=== PATIENT | male | born 1965 | race Caucasian/White ===

== ENCOUNTER 2021-10-23 09:44 | Observation (INO) | payer BC, SELFPAY ==
[2021-10-23] VITALS (14 sets, daily range): BP systolic 111–142; BP diastolic 80–99; PULSE 85–110; RESP 16–18; TEMP 36.8; O2SAT 92–98; BMI 57.3; BMI 53.8
--- NOTE | 2021-10-23 | IR_ITS ---
APPROVED REPORT Patient Location: Emergent Flight Hostess: DIXON Trent RT (R) PROCEDURES Left heart catheterization Left ventriculogram Selective coronary angiogram INDICATION Acute ST elevation myocardial infarction SCAI INDICATION Clinical history 56-year-old gentleman with morbid obesity diabetes hyperlipidemia hypertension along with family history has been experiencing intermittent resting chest pain discomfort. He was seen in the office this morning for urgent consultation and admitted to experiencing chest pain last evening. EKG demonstrated ST elevation in lead V2, I and aVL along with reciprocal changes in leads II, III, aVF. Because of patient's insulin requiring diabetes and suspicion for an ST elevation myocardial infarction he was immediately taken to the emergency department and prepped for emergent cardiac catheterization based on the above scenario and EKG suggesting ST elevation myocardial infarction Informed consent was obtained prior to the procedure. COMPLICATIONS None Estimated Blood Loss: Less than 10 mls TECHNIQUE One percent lidocaine used to anesthetize the right anterior aspect of the wrist. The right radial artery was accessed via the Seldinger technique. A 6 Syrian sheath was placed in the right radial artery. 2.5 mg of verapamil, 800 mcg of nitroglycerin, 1mg Lidocaine and 5000 U Heparin were given through the arterial sheath. The papa catheter was also used to perform left heart catheterization, left ventriculogram and selective coronary angiogram. At the end of the procedure the sheath was removed good hemostasis was achieved using Traclet band, patient was transferred to the postop holding area in stable condition. ANGIOGRAPHIC RESULTS The left main artery Normal The left anterior descending artery Normal The circumflex artery Normal The right coronary artery Dominant normal The WHITTEN ventriculogram reveals Normal 65% The left ventricular end-diastolic pressure 15 to 20 mmHg IMPRESSION Normal coronary arteries Normal ejection fraction Mildly elevated LVEDP PLAN 1. Evaluation of noncardiac symptoms such as pulmonary embolism. Patient's EKG is strikingly abnormal while patient claims previous EKGs were normal. 2. Continue risk factor modification Electronically signed by : Issa Castillo MD 10/23/2021 13:37:19
--- NOTE | 2021-10-23 09:44 | HMH.EDGENADL ---
ED Disposition Clinical Impression: ST elevation IN (STEMI) Disposition: Admitted As Inpatient Condition on Discharge: Serious - Critical Care Critical Care Time: No Attestation: On , the high probability of a clinically significant, sudden or life threatening deterioration of the following system(s) required my full and direct attention, intervention and personal management. The time I documented below is in addition to time spent performing reported procedures but includes the following listed in this critical care notation. Medical Decision Making - Pierre Inquiry Pt receiving controlled substance: No Vital Signs: 10/23/21 09:44 Temperature 98.3 F Temperature Source Oral Pulse Rate [Right Radial] 86 Respiratory Rate 16 Blood Pressure [Right Arm] 134/99 H Blood Pressure Mean [Right Arm] 110 Blood Pressure Source [Right Arm] Automatic Cuff Blood Pressure Position [Right Arm] Sitting 02 Sat by Pulse Oximetry 98 Oxygen Delivery Method Room Air - Lab Data Lab Results 10/23/21 09:49: WBC 5.1, RBC 5.48, Hgb 14.2, Hct 44.9, MCV 82.0, MCH 25.9 L, MCHC 31.5 L, RDW 15.2, Plt Count 270, MPV 8.1, Neut % (Auto) 46.6, Lymph % (Auto) 39.2, [place] % (Auto) 6.1, Eos % (Auto) 6.9, Baso % (Auto) 1.2, Neut # (Auto) 2.4, Lymph # (Auto) 2.0, [place] # (Auto) 0.3, Eos # (Auto) 0.4, Baso # (Auto) 0.1 10/23/21 09:49: Sodium 137, Potassium 3.9, Chloride 102, Carbon Dioxide 28, Anion Gap 10.9, BUN 14, Creatinine 0.80, Estimated Creat Clear 102, Estimated GFR 101, Est GFR ( Amer) 122, Glucose 97, Calcium 9.7, Troponin I < 0.01 10/23/21 09:59: SARS-CoV-2 (PCR) Not detected, Influenza A Untype (PCR) Not detected, Influenza Type B (PCR) Not detected Result diagrams: 10/23/21 09:49 10/23/21 09:49 Orders (Tests/Meds): ED MEDICATIONS Discontinued Medications Generic Name Dose Route Start Last Admin Trade Name Freq PRN Reason Stop Dose Admin Acetaminophen 650 mg 10/23/21 11:03 Acetaminophen 325mg Tab PO 11/22/21 11:02 Q4HP PRN Fever or Mild Pain Diphenhydramine HCl 50 mg 10/23/21 09:58 10/23/21 10:12 Diphenhydramine 50mg/Ml Vial IV 10/23/21 09:59 50 mg ONCE ONE Administration Fentanyl Citrate 25 mcg 10/23/21 09:58 Fentanyl 100mcg/2ml Vial IV 10/24/21 09:58 Q3MINP PRN Moderate to Severe Pain Fentanyl Citrate 50 mcg 10/23/21 09:58 10/23/21 10:21 Fentanyl 100mcg/2ml Vial IV 10/24/21 09:58 150 mcg Q3MINP PRN Administration Moderate to Severe Pain Fentanyl Citrate 25 mcg 10/23/21 09:58 Fentanyl 250mcg/5ml Vial IV 10/24/21 09:58 Q3MINP PRN Moderate to Severe Pain Fentanyl Citrate 50 mcg 10/23/21 09:58 Fentanyl 250mcg/5ml Vial IV 10/24/21 09:58 Q3MINP PRN Moderate to Severe Pain Fentanyl Citrate 25 mcg 10/23/21 11:03 Fentanyl 100mcg/2ml Vial IV 10/24/21 09:58 Q3MINP PRN Moderate to Severe Pain Fentanyl Citrate 50 mcg 10/23/21 11:03 Fentanyl 100mcg/2ml Vial IV 10/24/21 09:58 Q3MINP PRN Moderate to Severe Pain Fentanyl Citrate 50 mcg 10/23/21 11:03 Fentanyl 250mcg/5ml Vial IV 10/24/21 09:58 Q3MINP PRN Moderate to Severe Pain Fentanyl Citrate 25 mcg 10/23/21 11:03 Fentanyl 250mcg/5ml Vial IV 10/24/21 09:58 Q3MINP PRN Moderate to Severe Pain Flumazenil 0.2 mg 10/23/21 09:58 Flumazenil 0.1mg/Ml 5ml Vial IV 10/23/21 23:00 NEEDED PRN Sedation Flumazenil 0.2 mg 10/23/21 11:03 Flumazenil 0.1mg/Ml 5ml Vial IV 10/23/21 23:00 NEEDED PRN Sedation Heparin Sodium (Porcine) 10,000 unit 10/23/21 09:58 10/23/21 10:11 Heparin 1,000 Units/Ml 10ml Vial (Production [place]stabout) IV 10/23/21 13:58 5,000 unit NEEDED PRN Administration Emergency [facility] [employer] [employer] Heparin Sodium (Porcine) 10,000 unit 10/23/21 11:03 Heparin 1,000 Units/Ml 10ml Vial (Production [place]about) IV 10/23/21 13:58 NEEDED PRN Emergency Box [employer] Heparin Sodium/Sodium C
--- NOTE | 2021-10-23 09:49 | PC.NURSE ---
Dr Frazier spoke to dr Wirght for admission
--- NOTE | 2021-10-23 09:50 | PC.NURSE ---
Clipped both bilateral wrists in preparation for slabber light.
[2021-10-23 09:59] LABS: Basophils # 0.1 K/mm3 (0-0.2); Basophils % 1.2 % (0.1-2.0); Eosinophils # 0.4 K/mm3 (0.0-0.4); Eosinophils % 6.9 % (0.1-12.0); Hematocrit 44.9 % (42.0-52.0); Hemoglobin 14.2 g/dL (14.1-18.0); Lymphocytes % 39.2 % (10-50); Mean Corpuscular HGB Conc 31.5 g/dL (31.8-35.4); Mean Corpuscular Hemoglobin 25.9 pg (27.0-31.2); Mean Platelet Volume 8.1 fl (7.4-10.4); Monocytes # 0.3 K/mm3 (0.1-1.0); Monocytes % 6.1 % (1.7-9.3); Neutrophils # 2.4 K/mm3 (1.8-7.8); Neutrophils % 46.6 % (37.0-80.0); Platelet Count 270 K/mm3 (142-424); Red Blood Count 5.48 M/mm3 (4.60-6.20); Red Cell Distribution Width 15.2 % (11.5-17.5); White Blood Count 5.1 K/mm3 (4.8-10.8)
--- NOTE | 2021-10-23 09:59 | PC.NURSE ---
pt to laboratory associate at this time via stretcher
[2021-10-23 10:04] LABS: Coronavirus 19, PCR Not Detected (NotDetected); Influenza A, PCR Not Detected (NotDetected); Influenza B, PCR Not Detected (NotDetected)
[2021-10-23 10:07] LABS: Anion Gap 10.9 mEq/L (5-15); Blood Urea Nitrogen 14 mg/dl (9-20); Calcium 9.7 mg/dl (8.4-10.2); Carbon Dioxide 28 mmol/L (22.0-30.0); Chloride 102 mmol/L (98-107); Creatinine Clearance Estimated 102 mL/min (50-200); Estimated Glomerular Filt Rate 101 ml/min (>60); GFR (African American) 122 ML/MIN (>60); Glucose 97 mg/dl (74-100); Potassium 3.9 mmoL/L (3.5-5.1); Sodium 137 mmol/L (136-145)
[2021-10-23 10:49] LABS: Troponin I < 0.01 ng/ml (0.00-0.034)
--- NOTE | 2021-10-23 10:54 | CT_ITS ---
FINAL REPORT TECHNIQUE: Thin section axial CT images were obtained from the lung apices to the upper abdomen. IV contrast was administered. MIP 3-D reformats were obtained. This study was performed with techniques to keep radiation doses as low as reasonably achievable (ALARA). Individualized dose reduction techniques using automated exposure control or adjustment of mA and/or kV according to the patient's size were employed. CLINICAL HISTORY: visualize pulmonary artery. chest pain FINDINGS: The pulmonary arteries are suboptimally opacified. The heart size is normal. There is no adenopathy. There is no filling defect to suggest PE. There is no aortic dissection. There is no pericardial effusion. There is no suspicious infiltrate or nodule. No pleural effusion. Limited images of the upper abdomen demonstrate diffuse fatty infiltration of the liver. The gallbladder is absent. There are benign-appearing cysts in both kidneys measuring up to 7.0 cm on the right and 5.5 cm on the left. IMPRESSION: No pulmonary embolism or aortic dissection. Bilateral renal cysts. Reviewed, Interpreted and Dictated by Zackery Hathaway MD Transcribed by Westley Cohen Authenticated by Zackery Hathaway MD on 10/23/2021 11:28:[address] [facility]
--- NOTE | 2021-10-23 11:04 | SUR.PHASEII ---
pt to radiology
--- NOTE | 2021-10-23 11:19 | PC.NURSE ---
Pt arrived to the floor at this time
--- NOTE | 2021-10-23 12:44 | HMH.PHAVTE ---
[facility] Pharmacy VTE Monitoring - Patient Demographics Admission date: 10/23/21 Report Date: 10/23/21 Time: 12:44 Allergies/Adverse Reactions: Patient Allergies codeine Adverse Reaction (Verified 10/23/21 08:51) rash/itching Height: 1.73 m Weight: 160.685 kg Patient Problems: Current Active Problems ST elevation LA (STEMI) (Acute) - VTE Risk Labs: VTE Related Lab Results Hgb 14.2 g/dL (14.1-18.0) 10/23/21 09:49 Hct 44.9 % (42.0-52.0) 10/23/21 09:49 Plt Count 270 K/mm3 (142-424) 10/23/21 09:49 BUN 14 mg/dl (9-20) 10/23/21 09:49 Creatinine 0.80 mg/dl (0.66-1.25) 10/23/21 09:49 Estimated Creat Clear 102 mL/min (50-200) 10/23/21 09:49 Was VTE Risk Assessment Performed: Yes VTE Score: 2 Clinical Trial Participant: No - Prophylaxis VTE Prophylaxis Ordered?: Yes Types of VTE Prophylaxis: TEDS Knee High
--- NOTE | 2021-10-23 13:22 | HMH.PHAINT ---
I verified the patients home medication list utilizing list from pharmacy and information provided by the patient.
--- NOTE | 2021-10-23 14:59 | HMH.PNCARD ---
Subjective Date: 10/23/21 Time: 10:00 Principal diagnosis: STEMI, Abnormal EKG Interval history: Pt was seen in office today by Dr. Castillo. Office note: New patient here for chest pain & sob Cp & pressure at rest SOB with activity Denies dizziness & lightheadedness Denies swelling Denies numbness Denies fatigue Characteristics of symptom or complaint:?cp Onset:?10/02/21 Location:?under left side of breast Duration:?few minutes Intensity:?09/10 Radiation:?No Aggravating or associated factors:?none Relieving factors:?none Associated Symptoms:?none BP stable. HLD-on statin. DM2 insulin dependent. Clinical evaluation and indication for diagnostic coronary angiography includes Suspected CAD,New Onset Angina <= 2 months Patient is describing chest pain symptom as Typical Angina Clinical risk factors of HTN/HLD/DM2 Medication therapy including __2___ antianginals. Will plan to proceed with LHC/Coronary angiography with R radial access. The patient has been educated on the risks, benefits and alternatives of proceeding with LHC/Coronary angiography with R radial access. The patient verbalizes understanding and is agreeable in proceeding with the procedure. ST elevation on ecg, will transfer to ER for STEMI evaluation. PLAN: ER for evaluation of typical angina Exam Vital signs and Labs for Last 24 Hours: Temp Pulse Resp BP Pulse Ox 98.3 F 85 18 111/80 96 10/23/21 09:59 10/23/21 13:55 10/23/21 13:55 10/23/21 13:55 10/23/21 13:55 Laboratory Results - last 24 hr 10/23/21 09:49: WBC 5.1, RBC 5.48, Hgb 14.2, Hct 44.9, MCV 82.0, MCH 25.9 L, MCHC 31.5 L, RDW 15.2, Plt Count 270, MPV 8.1, Neut % (Auto) 46.6, Lymph % (Auto) 39.2, [place] % (Auto) 6.1, Eos % (Auto) 6.9, Baso % (Auto) 1.2, Neut # (Auto) 2.4, Lymph # (Auto) 2.0, [place] # (Auto) 0.3, Eos # (Auto) 0.4, Baso # (Auto) 0.1 10/23/21 09:49: Sodium 137, Potassium 3.9, Chloride 102, Carbon Dioxide 28, Anion Gap 10.9, BUN 14, Creatinine 0.80, Estimated Creat Clear 102, Estimated GFR 101, Est GFR ( Amer) 122, Glucose 97, Calcium 9.7, Troponin I < 0.01 10/23/21 09:59: SARS-CoV-2 (PCR) Not detected, Influenza A Untype (PCR) Not detected, Influenza Type B (PCR) Not detected I & O for Last 24 hours: Intake & Output 10/21/21 10/22/21 10/23/21 10/24/21 11:59 11:59 11:59 11:59 Intake Total 240 / 240 Balance 240 / 240 Weight 354 lb 4 oz - Constitutional mild distress - *Routine HEENT Exam Head: Present: normocephalic Eye: Present: EOMI, PERRL ENT: Present: mucous membranes moist - *Routine Neck Exam Present: supple. Absent: lymphadenopathy - *Routine Respiratory Exam Present: CTA bilaterally - *Routine Cardiovascular Exam Present: RRR - *Routine Abdominal Exam Present: soft, normoactive bowel sounds. Absent: tenderness - *Routine Extremities Exam Absent: cyanosis, clubbing, edema - *Routine Skin Exam Present: warm. Absent: rash - *Routine Neurological Exam Present: alert, oriented X3 Progress Note: A&P (1) ST elevation [place] (STEMI) Status: Acute (2) Abnormal ECG Status: Acute (3) Dyspnea Status: Acute (4) HTN (hypertension) Status: Acute (5) Typical angina Status: Acute (6) DM2 (diabetes mellitus, type 2) Status: Chronic (7) HLD (hyperlipidemia) Status: Chronic Assessment and Plan for All Diagnoses:: LHC was performed with normal coronaries noted. Normal LVEF. Chest CTA was performed and no PE or aortic dissection noted. Pt could be discharged home with outpatient follow up. Resume home meds: amlodipine 10 mg PO DAILY aspirin 81 mg PO DAILY carvedilol 12.5 mg PO BID cholecalciferol (vitamin D3) 125 mcg PO DAILY dulaglutide (Trulicity) 1.5 mg SQ WEEKLY insulin lispro (Humalog KwikPen U-200 Insulin) units SQ losartan-hydrochlorothiazide 100-12.5 mg 1 tab PO DAILY metformin 1,000 mg PO BID multivitamin 1 tab PO DAILY omeprazole 20 mg PO DAILY rosuvastatin 20 mg PO HS Foll
--- NOTE | 2021-10-23 16:34 | HMH.HPDC ---
General - General Admission date:: 10/23/21 Discharge date: 10/23/21 *Admission Date: 10/23/21 *Chief complaint: chest pain *History of present illness: this patient presented to card office with progressive chest pain consistent with angina and has sig risk factors - diabetes, htn, family hx and had abn ekg and was sent to the ed - pt sent down from Dr. Castillo's office for ST elevation MD. He is currently asymptomatic but has ST segment elevation on his EKG. He says he has been having chest pains off and on for 2 weeks, steadily worsening. His last episode was last night and duration was about 5 minutes. Denies associated shortness of breath, nausea, diaphoresis, radiation. He has diabetes and hypertension but has not been diagnosed with heart disease. He says he has a strong family history of heart disease in his father and uncles. 2 younger siblings that do not have heart problems. He is a non-smoker. 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 with unstable angina and abn ekg which showed st elevation - pt was admitted for eval and treatment [facility] History I have reviewed the patient's past medical history: Yes Medical History: Reports:: Diabetes Mellitus Type 2, Gastroesophageal Reflux Disease(GERD), Hypertension Denies:: MRSA *Have you ever received a pneumonia vaccine?: Yes *Have you received a flu vaccine this season?: Yes Laterality Cases: Bilateral: Tonsillectomy Other Surgeries: Yes: Cholecystectomy, Colonoscopy - *Social History Last grade of school completed: Advanced degree Smoking Status: Never smoker Alcohol Intake: never *Occupational Status:: other Housing: house *Travel in the last 8 weeks: None Family Hx:: Asthma, Cancer, Coronary Artery Disease, Diabetes, Heart Attack, Hyperlipidemia, Hypertension, Stroke, Alcoholism, Mental illness Review of Systems - Review of Systems Review of systems:: pertinent systems reviewed and negative unless documented below - Constitutional Denies fever(s) - Eyes Denies change in vision - ENT Denies dizziness - *Cardiovascular Reports chest pain, Reports chest pain at rest, Reports shortness of breath, Reports radiating jaw, neck or arm pain - *Respiratory Denies shortness of breath with activity - *Gastrointestinal Denies abdominal pain - *Genitourinary Denies blood in urine - *Musculoskeletal Denies joint pain - Integumentary/Breasts Denies rash - *Neurologic Denies seizure-like activity, Denies localized weakness - Psychiatric Denies anxiety Exam Vital signs and Labs for Last 24 Hours: Temp Pulse Resp BP Pulse Ox 98.3 F 85 18 111/80 96 10/23/21 09:59 10/23/21 13:55 10/23/21 13:55 10/23/21 13:55 10/23/21 13:55 Laboratory Results - last 24 hr 10/23/21 09:49: WBC 5.1, RBC 5.48, Hgb 14.2, Hct 44.9, MCV 82.0, MCH 25.9 L, MCHC 31.5 L, RDW 15.2, Plt Count 270, MPV 8.1, Neut % (Auto) 46.6, Lymph % (Auto) 39.2, [place] % (Auto) 6.1, Eos % (Auto) 6.9, Baso % (Auto) 1.2, Neut # (Auto) 2.4, Lymph # (Auto) 2.0, [place] # (Auto) 0.3, Eos # (Auto) 0.4, Baso # (Auto) 0.1 10/23/21 09:49: Sodium 137, Potassium 3.9, Chloride 102, Carbon Dioxide 28, Anion Gap 10.9, BUN 14, Creatinine 0.80, Estimated Creat Clear 102, Estimated GFR 101, Est GFR ( Amer) 122, Glucose 97, Calcium 9.7, Troponin I < 0.01 10/23/21 09:59: SARS-CoV-2 (PCR) Not detected, Influenza A Untype (PCR) Not detected, Influenza Type B (PCR) Not detected I & O for Last 24 hours: Intake & Output 10/21/21 10/22/21 10/23/21 10/24/21 11:59 11:59 11:59 11:59 Intake Total 240 / 240 Balance 240 / 240 Weight 354 lb 4 oz - Constitutional no acute distress, obese - *Routine HEENT Exam Head: Present: normocephalic Eye: Present: EOMI, PERRL ENT: Present: mucous membranes dry - *Routine Neck Exam Absent: JVD - *Routine Respiratory Exam Present: decreased breath sounds - *Routine Cardiovascular Exam Present: RRR, murmur, S4 - *Routine Abdominal Exa
--- NOTE | 2021-10-26 12:39 | CARE MANAGER ---
Called and spoke with Dr. Gaytan about post discharge status. Patient states that he is doing well, back to work with no issues. He also stated that he was very pleased with the care he received at this facility. No known issues at this time.
== END 2021-10-23 17:30 | disposition home or self-care (01) ==
LOC: ER 09:52 → 2ND 10:19
PROVIDERS: Internal Medicine; Admitting Provider Emergency Medicine; Emergency Provider Emergency Medicine; Visit Provider Emergency Medicine
DX: I25.110 Atherosclerotic heart disease of native coronary artery with unstable angina pectoris (principal); R07.9 Chest pain, unspecified; R94.31 Abnormal electrocardiogram [ECG] [EKG]; I10 Essential (primary) hypertension; E78.5 Hyperlipidemia, unspecified; E11.9 Type 2 diabetes mellitus without complications; Z79.4 Long term (current) use of insulin; Z79.899 Other long term (current) drug therapy; Z20.822 Contact with and (suspected) exposure to COVID-19
CPT/HCPCS: 71275; 80048; 84484; 85025; 93458; 99152; 99285; C1725; C1760; C1769; C9803; G0378; J1644; Q9967; U0003; U0005